=== PATIENT | female | born 2000 | race Hispanic/Latino ===

== ENCOUNTER 2025-09-20 04:26 | Inpatient (IN) | payer BC ==
[2025-09-20] MEDS ORDERED: MAGNESIUM HYDROXIDE/AL HYDROX 30 ML CUP PO PRN (06:45)
[2025-09-20] MEDS ORDERED: TERBUTALINE SULFATE 1 MG/ML AMP SUB-Q PRN (06:45)
[2025-09-20] MEDS ORDERED: CALCIUM CARBONATE 500 MG CHEW PO PRN (06:45)
[2025-09-20] MEDS ORDERED: LIDOCAINE HCL 1% 30 ML SDV INJ PRN (06:45)
[2025-09-20 07:21] LABS: MCH 27.4 PG (25.6-32.2); MCHC 32.3 g/dL (32.2-35.5); MCV 84.7 fL (79.4-94.8); RBC 4.71 M/uL (3.93-5.22)
[2025-09-20 07:52] LABS: ABO O; ANTIBODY SCREEN NEGATIVE; RH POSITIVE
[2025-09-20 08:21] LABS: AMPHETAMINES, URINE NEGATIVE (NEGATIVE); BARBITURATES, URINE NEGATIVE (NEGATIVE); BENZODIAZEPINE, URINE NEGATIVE (NEGATIVE); CANNABINOID, URINE NEGATIVE (NEGATIVE); COCAINE, URINE NEGATIVE (NEGATIVE); ECSTASY, URINE NEGATIVE (NEGATIVE); FENTANYL, URINE NEGATIVE (NEGATIVE); METHADONE, URINE NEGATIVE (NEGATIVE); OPIATES, URINE NEGATIVE (NEGATIVE); OXYCODONE, URINE NEGATIVE (NEGATIVE); PHENCYCLIDINE, URINE NEGATIVE (NEGATIVE)
[2025-09-20] MEDS ORDERED: OXYTOCIN/0.9 % SODIUM CHLORIDE 30 UNITS/500 ML BAG IV SCH (08:45)
[2025-09-20] MEDS ORDERED: ROPIVACAINE 0.2% 200 ML BAG ONE (18:07)
[2025-09-20] MEDS ORDERED: fentaNYL citrate 100 MCG/2 ML VIAL ONE (18:07)
[2025-09-20] MEDS ORDERED: LACTATED RINGER'S 1,000 ML IV PRN (18:15)
[2025-09-20] MEDS ORDERED: ROPIVACAINE 0.2% 200 ML BAG EPIDURAL SCH (18:45)
[2025-09-20] MEDS ORDERED: ePHEDrine sulfate 5 MG/ML SYRINGE IV PRN (18:45)
[2025-09-20] MEDS ORDERED: LACTATED RINGER'S 2,000 ML IV ONE (18:45)
[2025-09-20] MEDS ORDERED: LACTATED RINGER'S 500 ML IV PRN (18:45)
[2025-09-20] MEDS ORDERED: OXYTOCIN/0.9 % SODIUM CHLORIDE 500 ML IV SCH (19:00)
[2025-09-20] MEDS ORDERED: LACTATED RINGER'S 1,000 ML IV SCH (20:00)
[2025-09-21] MEDS ORDERED: BENZOCAINE 60 ML AEROSOL TOP PRN (05:30)
[2025-09-21] MEDS ORDERED: CALCIUM CARBONATE 500 MG CHEW PO PRN (05:30)
[2025-09-21] MEDS ORDERED: HYDROCORTISONE ACETATE 25 MG SUPP PR PRN (05:30)
[2025-09-21] MEDS ORDERED: OXYTOCIN/0.9 % SODIUM CHLORIDE 500 ML IV SCH (05:30)
[2025-09-21] MEDS ORDERED: IBUPROFEN 600 MG TAB PO PRN (05:30)
[2025-09-21] MEDS ORDERED: WITCH HAZEL/GLYCERIN 1 EA PAD TOP PRN (05:30)
[2025-09-21] MEDS ORDERED: LIDOCAINE 2% VISCOUS 6 ML SYR TOP ONE ×2 (05:30)
[2025-09-21] MEDS ORDERED: MAGNESIUM HYDROXIDE 30 ML UDC PO PRN (05:30)
[2025-09-21] MEDS ORDERED: MAGNESIUM HYDROXIDE/AL HYDROX 30 ML CUP PO PRN (05:30)
[2025-09-21] MEDS ORDERED: ACETAMINOPHEN 325 MG TAB PO PRN (05:30)
[2025-09-21] MEDS ORDERED: SENNOSIDES/DOCUSATE 1 EA TAB PO SCH (09:00)
== END 2025-09-22 12:23 | disposition home or self-care (01) | DRG 807 ==
LOC: FBCO 04:26 → FBC 06:45
PROVIDERS: ADMIT Advanced Practice Midwife; ATTEND Advanced Practice Midwife
PROC: 10907ZC Drainage of Amniotic Fluid, Therapeutic from Products of Conception, Via Natural or Artificial Opening (ICD-10-PCS; principal; 2025-09-21)
PROC: 10E0XZZ Delivery of Products of Conception, External Approach (ICD-10-PCS; 2025-09-21)
PROC: 0KQM0ZZ Repair Perineum Muscle, Open Approach (ICD-10-PCS; 2025-09-21)
PROC: 3E0R3BZ Introduction of Anesthetic Agent into Spinal Canal, Percutaneous Approach (ICD-10-PCS; 2025-09-21)
PROC: 00HU33Z Insertion of Infusion Device into Spinal Canal, Percutaneous Approach (ICD-10-PCS; 2025-09-21)
DX: O69.81X0 Labor and delivery complicated by cord around neck, without compression, not applicable or unspecified (principal); Z37.0 Single live birth; Z3A.39 39 weeks gestation of pregnancy; O70.1 Second degree perineal laceration during delivery; Z98.890 Other specified postprocedural states; Z79.899 Other long term (current) drug therapy
CPT/HCPCS: 01960; 36415; 80307; 85027; 86850; 86900; 86901; A9270; J2405; J2795; J3010; J7121